=== PATIENT | male | born 1930 | race Caucasian/White ===

== ENCOUNTER → 2017-06-03 | Outpatient (CLI) | payer MEDICARE | END | disposition home or self-care (01) | LOC: PCVCCLINIC 11:15 | PROVIDERS: ATTEND Internal Medicine Cardiovascular Disease | DX: I25.10 Atherosclerotic heart disease of native coronary artery without angina pectoris (principal); I10 Essential (primary) hypertension; I42.9 Cardiomyopathy, unspecified; I27.2 Other secondary pulmonary hypertension; I65.23 Occlusion and stenosis of bilateral carotid arteries; E78.00 Pure hypercholesterolemia, unspecified; J44.9 Chronic obstructive pulmonary disease, unspecified; G47.33 Obstructive sleep apnea (adult) (pediatric); E11.9 Type 2 diabetes mellitus without complications; Z90.49 Acquired absence of other specified parts of digestive tract; Z98.52 Vasectomy status; Z79.82 Long term (current) use of aspirin; Z87.891 Personal history of nicotine dependence | CPT/HCPCS: 80061; 93005; G0463 ==

== ENCOUNTER → 2018-07-30 | Outpatient (CLI) | payer MEDICARE | END | disposition home or self-care (01) | LOC: PCVCCLINIC 12:30 | PROVIDERS: ATTEND Internal Medicine Cardiovascular Disease | DX: I25.10 Atherosclerotic heart disease of native coronary artery without angina pectoris (principal); E78.00 Pure hypercholesterolemia, unspecified; I65.29 Occlusion and stenosis of unspecified carotid artery; G47.33 Obstructive sleep apnea (adult) (pediatric); J44.9 Chronic obstructive pulmonary disease, unspecified; R42 Dizziness and giddiness; R63.4 Abnormal weight loss; I10 Essential (primary) hypertension; I34.1 Nonrheumatic mitral (valve) prolapse; Z87.891 Personal history of nicotine dependence; Z79.82 Long term (current) use of aspirin | CPT/HCPCS: 80061; 93005; G0463 ==

== ENCOUNTER → 2018-08-07 | Outpatient (CLI) | payer MEDICARE ==
[~2018-08-07] MED LIST: REGADENOSON 0.4 MG/5 ML DISP.SYRIN. IV ONE
--- NOTE | 2018-08-12 09:45 | PCVCIMAG ---
APPROVED REPORT Imaging Protocol: Rest Tc-99m/Stress Tc-99m 1 day Study performed: 08/07/2018 10:16:48 Indication: Chest Pressure, Dizziness, SOA Patient Location: Out-Patient Stress Nurse: Soledad Licea RN ID Tech:[id number] Parekh Ht: 5 ft 9 in Wt: 158 lbs BSA: 1.87 m2 HR: 59 bpm BP: 151/75 mmHg BMI: 23.3 Medical History Medications: Albuterol, ASA, Pravastatin Allergies: Ranitidine Cardiac Risk Factors: Age, Hyperlipidemia, Tobacco History (Former), CAD, COPD, SD, CVD Previous Cardiac Procedures: PCI(LAD, RCA), Mitral Prolapse Pretest Chest Pain Characteristics: No chest pain Exercise History: Sedentary Physical Disabilities: hx of falls Resting Data Rest SPECT myocardial perfusion imaging was performed in supine position 45 minutes following the intravenous injection of 11.3 mCi of Tc-99m Sestamibi. Time of rest injection: 949 Date: 08/07/2018 Administration Route: IV Administration Site: Right AC Pharmacologic Stress Pharmacologic stress test was performed by injecting Regadenoson 0.4 mg IV push over 10-15 seconds immediately followed by the intravenous injection of 31.2 mCi of Tc-99m Sestamibi. Time of stress injection: 0 Date: 08/07/2018 Administration Route: IV Administration Site: Right AC Gated Stress SPECT was performed 45 minutes after stress injection. The images were gated to evaluate regional wall motion and calculate left ventricular ejection fraction. Comments PRIOR NUC 08/2015: FIXED DEFECT INFERIOR WALL, KNOWN PRIOR INFARCT. Stress Test Details Stress Test: Pharmacologic stress testing performed using 0.4 mg of regadenoson per 5 mL given IV over 10 seconds. Reason for pharmacologic stress test: Hx of Falls. HRMax Heart Rate (APMHR): 132 bpm Resting HR: 59 bpmTarget HR (85% APMHR): 112 bpm Max HR Achieved: 65 bpm % of APMHR: 49 Recovery HR: 61 bpm BP Resting BP: 151/75 mmHg Recovery BP: 145/63 mmHg ECG Resting ECG: Sinus Bradycardia Stress ECG: Sinus Rhythm, Sinus Rhythm, NSSTT changes Arrhythmia: VPC's Recovery ECG: Sinus Rhythm Clinical Reason for Termination: Completed protocol Stress Symptoms: None Exercise duration: 0 min 55 sec No complications. Stress ECG Conclusion ECG: Non-ischemic Study Quality Study: Good Study Data Post stress, the left ventricular ejection was 60%.. SSS: 4 SRS: 15 SDS: 0 TID = 1.06. 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 No evidence of stress induced ischemia. 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 No evidence of stress induced ischemia. Post stress, the left ventricular ejection was 60%. No change since prior study dated August 2015. Interpreted by: Marcus Avila MD Electronically Approved: 08/07/2018 20:01:43 <Conclusion> ECG: Non-ischemic
--- NOTE | 2018-08-12 10:03 | PCVCIMAG ---
APPROVED REPORT Study performed: 08/07/2018 08:44:58 EXAM: Comprehensive 2D, Doppler, and color-flow Echocardiogram Patient Location: Echo lab Status: routine BSA: 1.84 HR: 57 bpmBP: 122/62 mmHg Rhythm: NSR with PVC's Other Information Study Quality: Good Risk Factors: Cardiac Risk Factors: HTN, Hyperlipidemia Indications COPD Mitral Valve Prolapse Dizziness and Vertigo CAD 2D Dimensions IVSd: 8.43 (7-11mm)LVOT Diam: 20.00 (18-24mm) LVDd: 56.34 mm PWd: 10.78 (7-11mm)Ascending Ao: 28.68 (22-36mm) LVDs: 41.77 (25-40mm) Left Atrium: 47.32 (27-40mm) Aortic Root: 24.31 mm LV Single Plane 4CH: 50.51 % LV Single Plane 2CH: 52.57 % Biplane EF: 53.1 % Volumes Left Atrial Volume (Systole) Single Plane 4CH: 66.31 mLSingle Plane 2CH: 84.79 mL LA ESV Index: 44.00 mL/m2 Aortic Valve AoV Peak Dung.: 1.69 m/s AO Peak Gr.: 11.42 mmHgLVOT Max P.17 mmHg LVOT Max V: 0.97 m/s TRACIE Vmax: 1.76 cm2 Pulmonary Valve PV Peak Dung.: 1.14 m/sPV Peak Gr.: 5.16 mmHg Tricuspid Valve TR Peak Dung.: 3.65 m/sRAP Estimate: 7.00 mmHg TR Peak Gr.: 53.36 mmHg PA Pressure: 60.00 mmHg Left Ventricle Left ventricle is at the upper limits of normal. There is normal LV segmental wall motion. There is normal left ventricular wall thickness. Left ventricular systolic function is normal. The left ventricular ejection fraction is within the normal range. LVEF is 50-55%. This study is not technically sufficient to allow evaluation of the LV diastolic function due to irregular rhythm. Right Ventricle The right ventricle is normal size. The right ventricular systolic function is normal. Atria Left atrium is moderately dilated. Right atrium is dilated. Aortic Valve The Aortic valve is sclerotic. No aortic regurgitation is present. There is no aortic valvular stenosis. Mitral Valve There is mitral annular calcification. Posterior mitral valve leaflet calcification. Mild mitral valve prolapse. Moderate to severe mitral regurgitation No evidence of mitral valve stenosis. Tricuspid Valve The tricuspid valve is normal in structure. Moderate to severe tricuspid regurgitation. Pulmonary artery pressure is 60 mmHg. Pulmonic Valve The pulmonary valve is normal in structure. Mild pulmonic regurgitation. Great Vessels The aortic root is normal in size. IVC is normal in size and collapses >50% with inspiration. Pericardium There is no pericardial effusion. <Conclusion> Left ventricle is at the upper limits of normal. LVEF is 50-55%. This study is not technically sufficient to allow evaluation of the LV diastolic function due to irregular rhythm. The right ventricle is normal size. Left atrium is moderately dilated. Right atrium is dilated. The Aortic valve is sclerotic. There is no aortic valvular stenosis. Moderate to severe mitral regurgitation Moderate to severe tricuspid regurgitation. Pulmonary artery pressure is 60 mmHg. The aortic root is normal in size. There is no pericardial effusion.
== END | disposition home or self-care (01) ==
LOC: PCVCIMAG 14:12
PROVIDERS: ATTEND Internal Medicine Cardiovascular Disease
DX: I08.1 Rheumatic disorders of both mitral and tricuspid valves (principal); R07.89 Other chest pain; R42 Dizziness and giddiness; J44.9 Chronic obstructive pulmonary disease, unspecified; I10 Essential (primary) hypertension
CPT/HCPCS: 78452; 93017; 93306; A9500; J2785